=== PATIENT | female | born 1980 | race Caucasian/White ===

== ENCOUNTER 2020-10-19 00:38 | Inpatient (IN) | payer OTHER ==
[~2020-10-19] VITALS: Ht 170.2 cm; Wt 63.5 kg
--- NOTE | 2020-10-19 00:48 | NUR ---
task rn. spoke with pharmacy regarding epi, levophed, and phenylephrine drips to be requested.
[2020-10-19] MEDS ORDERED: HYDROCORTISONE 100 MG INJ. IVPush ONE (01:00)
[2020-10-19] MEDS: EPINEPHRINE 5 MG in SODIUM CHLORIDE 0.9% 245 ML IV PRN ×5 (01:04→18:17)
[2020-10-19] MEDS: NOREPINEPHRINE 8 MG in SODIUM CHLORIDE 0.9% 242 ML IV PRN ×2 (01:05→05:52)
[2020-10-19] MEDS: VASOPRESSIN 20 UNIT in SODIUM CHLORIDE 0.9% 99 ML IV PRN ×3 (01:13→10:50)
[2020-10-19] MEDS ORDERED: HYDROCORTISONE 100 MG INJ. ONE (01:28)
[2020-10-19 01:43] LABS: MEAN CORPUSCULAR HEMOGLOBIN 26.4 pg (27.0-34.8); MEAN CORPUSCULAR HGB CONC 30.8 g/dL (32.4-35.8); MEAN PLATELET VOLUME 7.7 fL (7.4-10.4); PLATELET COUNT 518 x10^3/uL (130-400); RED BLOOD COUNT 2.96 x10^6/uL (3.82-5.3); RED CELL DISTRIBUTION WIDTH 16.7 % (9.6-15.2)
[2020-10-19 01:53] LABS: ALANINE AMINOTRANSFERASE 668 U/L (12-78); ALBUMIN 1.6 g/dL (3.4-5.0); ANION GAP 28 mmol/L (5-15); CALCIUM 9.2 mg/dL (8.5-10.1); CHLORIDE 94 mmol/L (98-107); CREATININE 4.33 mg/dL (0.55-1.02)
--- NOTE | 2020-10-19 02:03 | NUR ---
PT BIB [facility] S/P CARDIAC ARREST IN THEIR [facility], 2 MIN CPR TO ROSC PT INTUBATED ETT 7.0 23 AT LIP 71 % FIO2 TV 649 PEEP 5 RR 22, PT ON LEVOPHED GTT EPI GTT GERA GTT BICARB FENT AND KETAMINE GTTS, CL LEFT JUGULAR DASILVA CATH IN PLACE.
[2020-10-19 02:20] LABS: MD YES
[2020-10-19 02:23] LABS: BAND#(MANUAL) 1.86 x10^3/uL; BANDS%(MANUAL) 10 % (0-7); HYPOCHROMIA 2+; LYMPHS% (MANUAL) 7 % (22-44); METAMYELOCYTES# (MANUAL) 0.74 x10^3/uL (0-0); METAMYELOCYTES% (MANUAL) 4 % (0-1); MONOS#(MANUAL) 1.12 x10^3/uL (0.3-2.7); MONOS% (MANUAL) 6 % (2-9); MYELOCYTES# (MANUAL) 0.19 x10^3/uL (0-0); MYELOCYTES% (MANUAL) 1 % (0-0); SEG#(MANUAL) 13.39 x10^3/uL (1.8-6.8); SEGS% (MANUAL) 72 % (42-75)
[2020-10-19 02:25] LABS: ANISOCYTOSIS 2+; ECHINOCYTES 2+; PMNS WITH VACUOLES 1+; TOXIC GRAN 1+
[2020-10-19 02:26] LABS: <PLATELET ESTIMATE> INCREASED; <PLT MORPHOLOGY> NORMAL PLT MORPH; CRENATED 1+; TARGET CELLS 2+
[2020-10-19] MEDS ORDERED: DEXTROSE 50%, 50ML SYRINGE IVPush PRN ×2 (02:30→14:00)
[2020-10-19] MEDS ORDERED: PHARMACY MAY ADJ FOR RENAL FX MC SCH (02:30)
[2020-10-19] MEDS ORDERED: DEXTROSE 4 GM TAB.CHEW PO PRN ×2 (02:30→14:00)
[2020-10-19] MEDS ORDERED: SODIUM BICARBONATE 8.4% 150 MEQ in DEXTROSE 5% 1,000 ML IV SCH (02:30)
[2020-10-19] MEDS: SODIUM BICARBONATE 8.4% 150 MEQ in DEXTROSE 5% 1,000 ML IV SCH ×2 (02:30→11:01)
[2020-10-19] MEDS ORDERED: GLUCAGON 1 MG IM PRN ×2 (02:30→14:00)
[2020-10-19] MEDS ORDERED: LIDOCAINE-MPF 1%, 2ML ENDO PRN (02:30)
[2020-10-19 02:31] LABS: BILIRUBIN,TOTAL 0.2 mg/dL (0.2-1.0)
[2020-10-19 02:32] LABS: ALKALINE PHOSPHATASE 155 U/L (45-117); TOTAL PROTEIN 4.2 g/dL (6.4-8.2)
--- NOTE | 2020-10-19 03:16 | NUR ---
PT WEANED OFF GERA TOLERATING WELL IN NAD
[2020-10-19] MEDS: PROPOFOL 100 ML IV PRN ×2 (03:20→12:53)
--- NOTE | 2020-10-19 03:20 | NUR ---
SPOKE WITH DR FERRER RE FLUID RESUSSITATION PER SEPSIS PROTOCOL AND HE STATED THAT FLUIDS WERE CONTRAINDICATED
[2020-10-19] MEDS ORDERED: VANCOMYCIN PER PHARMACY MC PRN (03:30)
[2020-10-19] MEDS ORDERED: SODIUM CHLORIDE 0.9% 1,000 ML IV SCH (03:30)
[2020-10-19] MEDS ORDERED: morphine SULFATE 10 MG/ML, 1ML IVPush PRN (03:30)
[2020-10-19] MEDS ORDERED: ONDANSETRON 2MG/ML, 2ML IVPush PRN (03:30)
[2020-10-19] MEDS ORDERED: ACETAMINOPHEN 325 MG TABLET PO PRN (03:30)
[2020-10-19] MEDS ORDERED: PHARMACY MAY ADJ FOR RENAL FX MC PRN (03:30)
[2020-10-19] MEDS ORDERED: ALBUTEROL/IPRATROPIUM 2.5MG/0.5MG, 3 ML HHN PRN (03:30)
[2020-10-19 03:38] LABS: MEAN CORPUSCULAR HEMOGLOBIN 26.1 pg (27.0-34.8); MEAN CORPUSCULAR HGB CONC 30.4 g/dL (32.4-35.8); MEAN PLATELET VOLUME 7.9 fL (7.4-10.4); PLATELET COUNT 484 x10^3/uL (130-400); RED BLOOD COUNT 3.06 x10^6/uL (3.82-5.3); RED CELL DISTRIBUTION WIDTH 16.6 % (9.6-15.2)
[2020-10-19 03:41] LABS: MD YES
--- NOTE | 2020-10-19 03:45 | NUR ---
TITRATING MEDS FOR BP
--- NOTE | 2020-10-19 03:45 | NUR ---
DR FERRER PLACED TRIPLE DIALYSIS CATH TO RIGHT FEM, PT TOLERATED WELL
[2020-10-19 03:50] LABS: ALANINE AMINOTRANSFERASE 665 U/L (12-78); ALBUMIN 1.7 g/dL (3.4-5.0); ANION GAP 30 mmol/L (5-15); CALCIUM 8.6 mg/dL (8.5-10.1); CHLORIDE 96 mmol/L (98-107); CREATININE 4.08 mg/dL (0.55-1.02)
[2020-10-19 04:00] LABS: ALKALINE PHOSPHATASE 153 U/L (45-117); BILIRUBIN,TOTAL 0.4 mg/dL (0.2-1.0); FREE T4 (FREE THYROXINE) 0.98 ng/dL (0.76-1.46); TROPONIN I 0.049 ng/mL (0.000-0.045)
[2020-10-19] MEDS ORDERED: PLEASE ENTER ALLERGIES MC SCH (04:00)
[2020-10-19 04:07] LABS: ANISOCYTOSIS 2+; BAND#(MANUAL) 1.66 x10^3/uL; BANDS%(MANUAL) 11 % (0-7); BASOS#(MANUAL) 0.15 x10^3/uL (0-0.1); BASOS% (MANUAL) 1 % (0-1); EOS#(MANUAL) 0.45 x10^3/uL (0.0-0.4); EOS% (MANUAL) 3 % (1-7); LYMPHS% (MANUAL) 4 % (22-44); METAMYELOCYTES# (MANUAL) 1.81 x10^3/uL (0-0); METAMYELOCYTES% (MANUAL) 12 % (0-1); MONOS#(MANUAL) 1.06 x10^3/uL (0.3-2.7); MONOS% (MANUAL) 7 % (2-9); MYELOCYTES% (MANUAL) 2 % (0-0); SEG#(MANUAL) 9.06 x10^3/uL (1.8-6.8); SEGS% (MANUAL) 60 % (42-75)
[2020-10-19 04:08] LABS: CRENATED 1+; ECHINOCYTES 2+; HYPOCHROMIA 1+; PMNS WITH VACUOLES 1+; TARGET CELLS 2+; TOXIC GRAN 1+
[2020-10-19 04:09] LABS: SPHEROCYTES 1+
[2020-10-19 04:10] LABS: <PLATELET ESTIMATE> INCREASED; <PLT MORPHOLOGY> NORMAL PLT MORPH
--- NOTE | 2020-10-19 04:13 | NUR ---
awaiting admit bed at this time
[2020-10-19] MEDS ORDERED: PIPERACILLIN/TAZO 2.25 GM in DEXTROSE 5% 50 ML IVPB SCH (04:30)
[2020-10-19] MEDS ORDERED: EPINEPHRINE SYRINGE 0.1 MG/ML, 10ML ONE (04:46)
--- NOTE | 2020-10-19 04:58 | NUR ---
report to [place] pt to ct before floor
[2020-10-19] MEDS ORDERED: PHARMACOKINETIC MONITORING MC PRN (05:30)
--- NOTE | 2020-10-19 05:34 | NUR ---
pt to icu with rt this rn and 2 techs
[2020-10-19] MEDS: FENTANYL PF 100 MCG/2ML IVPush PRN ×6 (06:16→22:11)
[2020-10-19 06:41] LABS: MICROSCOPIC INDICATED
[2020-10-19 06:51] LABS: AMPHETAMINE SCREEN, URINE Negative (Negative); BARBITURATE SCREEN, URINE Negative (Negative); BENZODIAZEPINE SCREEN, URINE Positive (Negative); CANNABINOID SCREEN, URINE Negative (Negative); COCAINE SCREEN, URINE Negative (Negative); METHADONE SCREEN, URINE Negative (Negative); OPIATE SCREEN, URINE Negative (Negative)
[2020-10-19] MEDS ORDERED: SODIUM BICARB 8.4%, 50ML SYRINGE IVPush ONE (07:00)
[2020-10-19 08:04] LABS: ANION GAP 23 mmol/L (5-15); CALCIUM 7.6 mg/dL (8.5-10.1); CHLORIDE 98 mmol/L (98-107); CREATININE 3.82 mg/dL (0.55-1.02)
[2020-10-19 08:18] LABS: MEAN CORPUSCULAR HEMOGLOBIN 26.6 pg (27.0-34.8); MEAN PLATELET VOLUME 7.8 fL (7.4-10.4); PLATELET COUNT 442 x10^3/uL (130-400); RED BLOOD COUNT 2.77 x10^6/uL (3.82-5.3); RED CELL DISTRIBUTION WIDTH 16.6 % (9.6-15.2)
[2020-10-19 08:34] LABS: ALANINE AMINOTRANSFERASE 650 U/L (12-78); ALBUMIN 1.4 g/dL (3.4-5.0)
[2020-10-19 08:36] LABS: ALKALINE PHOSPHATASE 99 U/L (45-117); BILIRUBIN,TOTAL 0.4 mg/dL (0.2-1.0); TOTAL PROTEIN 3.7 g/dL (6.4-8.2)
[2020-10-19] MEDS: NOREPINEPHRINE 32 MG in SODIUM CHLORIDE 0.9% 218 ML IV PRN ×2 (08:36→12:55)
[2020-10-19 08:47] LABS: INTERNATIONAL NORMALIZED RATIO 2.46 (0.93-1.1); PROTHROMBIN TIME 25.9 Seconds (9.6-11.5)
[2020-10-19] MEDS ORDERED: FAMOTIDINE 20 MG/2 ML IVPush SCH ×2 (09:00)
[2020-10-19] MEDS ORDERED: CALCIUM CHLORIDE 10%, 10ML SYR ONE (09:00)
[2020-10-19 09:04] LABS: MD YES
[2020-10-19 09:06] LABS: BAND#(MANUAL) 1.68 x10^3/uL; BANDS%(MANUAL) 28 % (0-7); BASOS#(MANUAL) 0.06 x10^3/uL (0-0.1); BASOS% (MANUAL) 1 % (0-1); LYMPH#(MANUAL) 0.48 x10^3/uL (1-3.4); LYMPHS% (MANUAL) 8 % (22-44); MONOS#(MANUAL) 0.36 x10^3/uL (0.3-2.7); MONOS% (MANUAL) 6 % (2-9); SEG#(MANUAL) 3.42 x10^3/uL (1.8-6.8); SEGS% (MANUAL) 57 % (42-75)
[2020-10-19 09:07] LABS: ANISOCYTOSIS 2+; CRENATED 1+; ECHINOCYTES 2+; HYPOCHROMIA 1+; TARGET CELLS 2+
[2020-10-19 09:08] LABS: <PLATELET ESTIMATE> INCREASED; <PLT MORPHOLOGY> NORMAL PLT MORPH
[2020-10-19 09:09] LABS: PMNS WITH VACUOLES 1+
[2020-10-19] MEDS ORDERED: LACTATED RINGERS 1,000 ML IVBOLUS ONE ×2 (10:00→11:30)
[2020-10-19] MEDS ORDERED: HYDROCORTISONE 250 MG/2 ML IVPush SCH (10:30)
[2020-10-19 10:31] LABS: PH, VENOUS 7.455 pH (7.320-7.420)
[2020-10-19] MEDS: PHENYLEPHRINE 50 MG in SODIUM CHLORIDE 0.9% 245 ML IV PRN ×2 (10:31→19:45)
[2020-10-19] MEDS: HYDROCORTISONE 100 MG INJ. IVPush SCH ×2 (10:50→18:21)
[2020-10-19] MEDS: SODIUM CHLORIDE FLUSH 10ML SYR IVF SCH ×3 (10:50→20:31)
[2020-10-19] MEDS: MEROPENEM 500 MG in SODIUM CHLORIDE 0.9% 100 ML IV SCH ×2 (11:31→23:04)
[2020-10-19] MEDS ORDERED: OMNIPAQUE 350 MG/ML, 100ML BOTTLE ONE (12:33)
[2020-10-19] MEDS: INSULIN LISPRO 100 UNITS/ML, PEN SQ-INSULIN SCH ×3 (13:17→20:35)
[2020-10-19 13:43] LABS: ANION GAP 16 mmol/L (5-15); CALCIUM 7.1 mg/dL (8.5-10.1); CHLORIDE 100 mmol/L (98-107); CREATININE 3.16 mg/dL (0.55-1.02)
[2020-10-19] MEDS: ALBUMIN HUMAN 25% 100 ML IV SCH ×2 (15:19→23:45)
[2020-10-19] MEDS ORDERED: DARBEPOETIN 60 MCG/ML SQ SCH (16:00)
[2020-10-19] MEDS ORDERED: PHYTONADIONE 10 MG in SODIUM CHLORIDE 0.9% 50 ML IV ONE (16:00)
[2020-10-19] MEDS ORDERED: ALBUMIN HUMAN 25% 50 ML IV PRN (16:30)
[2020-10-19] MEDS ORDERED: ALBUMIN HUMAN 25% 100 ML IV PRN (16:30)
[2020-10-19] MEDS: IRON SUCROSE COMPLEX 100MG/5ML IV SCH (17:04)
[2020-10-19] MEDS: PANTOPRAZOLE 40 MG IV IVPush SCH (17:04)
[2020-10-19 17:16] VITALS: BP 87/46
[2020-10-19 17:28] LABS: TROPONIN I 0.208 ng/mL (0.000-0.045)
[2020-10-19 17:32] VITALS: BP 87/48
[2020-10-19 17:50] VITALS: BP 90/50
[2020-10-19 17:50] LABS: GASTRIC OCCULT BLD NEGATIVE (NEGATIVE); GASTRIC PH 4 (1-7)
[2020-10-19 18:08] VITALS: BP 101/60
[2020-10-20] MEDS: HYDROCORTISONE 100 MG INJ. IVPush SCH ×3 (02:29→17:55)
[2020-10-20] MEDS: VASOPRESSIN 20 UNIT in SODIUM CHLORIDE 0.9% 99 ML IV PRN ×3 (03:00→20:03)
[2020-10-20] MEDS: EPINEPHRINE 10 MG in SODIUM CHLORIDE 0.9% 240 ML IV PRN ×4 (03:01→23:47)
[2020-10-20] MEDS ORDERED: SODIUM CHLORIDE 0.9% 1,000 ML IV SCH (03:30)
[2020-10-20] MEDS: PANTOPRAZOLE 40 MG IV IVPush SCH ×2 (04:41→17:55)
[2020-10-20] MEDS: NOREPINEPHRINE 32 MG in SODIUM CHLORIDE 0.9% 218 ML IV PRN ×2 (04:46→20:02)
[2020-10-20 04:54] LABS: MEAN CORPUSCULAR HEMOGLOBIN 25.6 pg (27.0-34.8); MEAN CORPUSCULAR HGB CONC 31.9 g/dL (32.4-35.8); MEAN PLATELET VOLUME 8.1 fL (7.4-10.4); PLATELET COUNT 217 x10^3/uL (130-400); RED CELL DISTRIBUTION WIDTH 17.1 % (9.6-15.2)
[2020-10-20 04:55] LABS: INTERNATIONAL NORMALIZED RATIO 1.6 (0.93-1.1)
[2020-10-20 04:59] LABS: ALANINE AMINOTRANSFERASE 407 U/L (12-78); ALBUMIN 2.9 g/dL (3.4-5.0); ANION GAP 13 mmol/L (5-15); CALCIUM 6.7 mg/dL (8.5-10.1); CHLORIDE 101 mmol/L (98-107); CREATININE 2.14 mg/dL (0.55-1.02)
[2020-10-20 05:04] LABS: ALKALINE PHOSPHATASE 239 U/L (45-117); BILIRUBIN,TOTAL 0.7 mg/dL (0.2-1.0); TOTAL PROTEIN 4.8 g/dL (6.4-8.2); TROPONIN I 0.165 ng/mL (0.000-0.045)
[2020-10-20 06:02] LABS: MD YES
[2020-10-20 06:07] LABS: ANISOCYTOSIS 2+; BAND#(MANUAL) 6.47 x10^3/uL; BANDS%(MANUAL) 29 % (0-7); LYMPH#(MANUAL) 0.45 x10^3/uL (1-3.4); LYMPHS% (MANUAL) 2 % (22-44); METAMYELOCYTES# (MANUAL) 2.68 x10^3/uL (0-0); METAMYELOCYTES% (MANUAL) 12 % (0-1); MONOS#(MANUAL) 2.45 x10^3/uL (0.3-2.7); MONOS% (MANUAL) 11 % (2-9); SEG#(MANUAL) 10.26 x10^3/uL (1.8-6.8); SEGS% (MANUAL) 46 % (42-75)
[2020-10-20 06:08] LABS: <PLATELET ESTIMATE> ADEQUATE; <PLT MORPHOLOGY> NORMAL PLT MORPH; HYPOCHROMIA 2+; MICROCYTOSIS 1+; TARGET CELLS 1+
[2020-10-20 06:09] LABS: POLYCHROMASIA 1+
[2020-10-20 06:10] LABS: ECHINOCYTES 1+; PMNS WITH VACUOLES 1+
[2020-10-20 06:14] LABS: SMUDGE CELLS 1+
[2020-10-20 06:25] LABS: VANCOMYCIN,RANDOM 13.1 mcg/mL
[2020-10-20] MEDS: PROPOFOL 100 ML IV PRN ×2 (06:26→16:09)
[2020-10-20] MEDS ORDERED: MAGNESIUM SULFATE PMX 2GM/50ML 50 ML IV ONE (06:30)
[2020-10-20] MEDS: INSULIN LISPRO 100 UNITS/ML, PEN SQ-INSULIN SCH ×4 (06:36→21:00)
[2020-10-20] MEDS: ALBUMIN HUMAN 25% 100 ML IV SCH ×3 (08:12→23:55)
[2020-10-20] MEDS: VANCOMYCIN 1,200 MG in SODIUM CHLORIDE 0.9% 250 ML IV ONE ×2 (09:30→12:27)
[2020-10-20] MEDS: MEROPENEM 500 MG in SODIUM CHLORIDE 0.9% 100 ML IV SCH ×2 (11:23→23:55)
[2020-10-20] MEDS ORDERED: VANCOMYCIN 1,200 MG in SODIUM CHLORIDE 0.9% 250 ML IV ONE (12:00)
[2020-10-20] MEDS ORDERED: D5%-0.45% NACL 1,000 ML IV SCH (12:30)
[2020-10-20] MEDS ORDERED: DEXTROSE 10% 1,000 ML IV SCH (15:00)
[2020-10-20] MEDS: SODIUM BICARBONATE 8.4% 150 MEQ in DEXTROSE 5% 1,000 ML IV SCH ×2 (15:20→23:46)
[2020-10-20 17:49] LABS: CREATININE 2.48 mg/dL (0.55-1.02)
[2020-10-20] MEDS: IRON SUCROSE COMPLEX 100MG/5ML IV SCH (22:53)
[2020-10-20] MEDS: SODIUM CHLORIDE FLUSH 10ML SYR IVF SCH ×2 (22:53→23:55)
[2020-10-21] MEDS ORDERED: SODIUM BICARB 8.4%, 50ML SYRINGE IVPush ONE (01:00)
[2020-10-21] MEDS: HYDROCORTISONE 100 MG INJ. IVPush SCH (03:36)
[2020-10-21 03:39] LABS: ALANINE AMINOTRANSFERASE 970 U/L (12-78); ALBUMIN 2.5 g/dL (3.4-5.0); ANION GAP 36 mmol/L (5-15); CALCIUM 6.5 mg/dL (8.5-10.1); CHLORIDE 97 mmol/L (98-107); CREATININE 2.47 mg/dL (0.55-1.02)
[2020-10-21 03:41] LABS: ALKALINE PHOSPHATASE 159 U/L (45-117); BILIRUBIN,TOTAL 0.9 mg/dL (0.2-1.0); TOTAL PROTEIN 3.6 g/dL (6.4-8.2)
== END 2020-10-21 04:01 | disposition expired | DRG 871 ==
LOC: ED 01:10 → EDIP 02:52 → CCU 05:20
PROVIDERS: ATTEND Hospitalist
PROC: 5A1945Z Respiratory Ventilation, 24-96 Consecutive Hours (ICD-10-PCS; principal; 2020-10-19)
PROC: 0BH17EZ Insertion of Endotracheal Airway into Trachea, Via Natural or Artificial Opening (ICD-10-PCS; 2020-10-19)
PROC: 30233K1 Transfusion of Nonautologous Frozen Plasma into Peripheral Vein, Percutaneous Approach (ICD-10-PCS; 2020-10-19)
PROC: 02HV33Z Insertion of Infusion Device into Superior Vena Cava, Percutaneous Approach (ICD-10-PCS; 2020-10-19)
PROC: B548ZZA Ultrasonography of Superior Vena Cava, Guidance (ICD-10-PCS; 2020-10-19)
PROC: 0T9B70Z Drainage of Bladder with Drainage Device, Via Natural or Artificial Opening (ICD-10-PCS; 2020-10-19)
DX: A41.9 Sepsis, unspecified organism (principal); J96.00 Acute respiratory failure, unspecified whether with hypoxia or hypercapnia; K72.00 Acute and subacute hepatic failure without coma; R65.21 Severe sepsis with septic shock; I21.A1 Myocardial infarction type 2; E87.2 Acidosis; N39.0 Urinary tract infection, site not specified; K56.0 Paralytic ileus; Z66 Do not resuscitate; E16.2 Hypoglycemia, unspecified; E87.5 Hyperkalemia; E88.09 Other disorders of plasma-protein metabolism, not elsewhere classified; I46.9 Cardiac arrest, cause unspecified; I50.9 Heart failure, unspecified; D64.9 Anemia, unspecified; I73.9 Peripheral vascular disease, unspecified; K29.70 Gastritis, unspecified, without bleeding; R68.0 Hypothermia, not associated with low environmental temperature; N18.9 Chronic kidney disease, unspecified; Z79.01 Long term (current) use of anticoagulants; Z79.4 Long term (current) use of insulin; Z86.718 Personal history of other venous thrombosis and embolism; Z89.511 Acquired absence of right leg below knee; Z88.0 Allergy status to penicillin
CPT/HCPCS: 36556; 36600; 71045; 71250; 74174; 74176; 74177; 80048; 80053; 80202; 80307; 81001; 82140; 82248; 82271; 82533; 82565; 82728; 82803; 82962; 83036; 83520; 83540; 83550; 83605; 83735; 83970; 84100; 84439; 84443; 84478; 84484; 84703; 85014; 85018; 85025; 85610; 85730; 86160; 86256; 86706; 86850; 86900; 87040; 87070; 87081; 87086; 87205; 87340; 90935; 93005; 93306; 94002; 94003; 96374; 99292; G0378; J0171; J0881; J1756; J2185; J2543; J2704; J3010; J3370; J3430; J7070; P9047; Q9957; Q9967; C9113; J1720; J2370; J3475; J7050; J7120; P9017